=== PATIENT | female | born 1975 | race Caucasian/White ===

== ENCOUNTER 2021-07-22 06:05 | Outpatient (REF) | payer MEDICARE, MEDICAID, SELFPAY ==
[2021-07-22 09:41] LABS: Hematocrit 40.9 % (37-47); Hemoglobin 14.2 g/dl (12.0-16.0); Mean Corpuscular HGB Conc 34.7 g/dl (31.0-35.0); Mean Corpuscular Hemoglobin 33.9 pg (27.0-33.0); Mean Corpuscular Volume 97.6 fL (80-98); Mean Platelet Volume 11.6 fL (9.4-12.3); Platelet Count 253 X10*3/uL (160-400); Red Blood Count 4.19 X10*6/uL (4.20-5.50); Red Cell Distribution Width 12.2 % (11.0-16.0); White Blood Count 6.4 X10*3/uL (4.8-10.8)
[2021-07-22 10:09] LABS: Alanine Aminotransferase 12 U/L (0-31); Alkaline Phosphatase 57 U/L (39-117); Anion Gap 12 (12-20); Aspartate Amino Transferase 19 U/L (5-31); Bilirubin Total 0.3 mg/dL (0.0-1.0); Blood Urea Nitrogen 11 mg/dL (9-16); Calcium 9.2 mg/dL (8.4-10.2); Carbon Dioxide 26 mmol/L (22-29); Chloride 105 mmol/L (96-108); Cholesterol 274 mg/dL; Estimated Glomerular Filt Rate > 60; Glucose Fasting 92 mg/dL (60-99); HDL Cholesterol 69 mg/dL; LDL Cholesterol Calculated 190 mg/dl; Potassium 4.1 mmol/L (3.3-5.1); Sodium 139 mmol/L (135-145); Total Protein 7.3 g/dL (6.5-8.0); Triglycerides 79 mg/dL
[2021-07-22 10:32] LABS: TSH reflex Free T4 9.37 uIU/mL (0.32-4.0)
[2021-07-22 11:42] LABS: Free T4 (Free Thyroxine) 0.77 ng/dL (0.71-1.85)
== END 2021-07-22 06:06 | disposition home or self-care (01) ==
LOC: HO.LHD 06:05
PROVIDERS: Visit Provider Internal Medicine
DX: Z00.00 Encounter for general adult medical examination without abnormal findings (principal)
CPT/HCPCS: 36415; 80053; 80061; 84439; 84443; 85027

== ENCOUNTER 2021-10-27 14:15 | Outpatient (REF) | payer MEDICARE, MEDICAID, SELFPAY | END 2021-10-27 14:16 | disposition home or self-care (01) | LOC: HO.LHD 14:15 | PROVIDERS: Visit Provider Internal Medicine | DX: E03.9 Hypothyroidism, unspecified (principal); E78.5 Hyperlipidemia, unspecified | CPT/HCPCS: 36415; 84443 ==

== ENCOUNTER 2022-11-17 07:06 | Outpatient (REF) | payer MEDICARE, MEDICAID, SELFPAY ==
[2022-11-17 09:40] LABS: MANUAL DIFF FLAG NO
[2022-11-17 09:53] LABS: Basophils Absolute Auto 0.1 X10*3/uL (0.0-0.2); Basophils Percent Auto 1.4 % (0-2); Eosinophils Absolute Auto 0.1 X10*3/uL (0.0-0.4); Eosinophils Percent Auto 1.1 % (0-4); Hematocrit 42.7 % (37.0-47.0); Hemoglobin 14.4 g/dl (12.0-16.0); Imm Gran Abs Auto 0.01 X10*3/uL (0.00-0.03); Imm Gran Pct Auto 0.2 % (0.0-0.4); Lymphocytes Absolute Auto 1.7 X10*3/uL (1.2-4.9); Lymphocytes Percent Auto 25.8 % (20-40); Mean Corpuscular HGB Conc 33.7 g/dl (31.0-35.0); Mean Corpuscular Hemoglobin 32.4 pg (27.0-33.0); Mean Platelet Volume 10.9 fL (9.4-12.3); Monocytes Absolute Auto 0.8 X10*3/uL (0.1-1.2); Monocytes Percent Auto 12.6 % (2-11); Neutrophils Absolute Auto 3.8 x10*3/uL (2.0-8.3); Neutrophils Percent Auto 58.9 % (45-73); Platelet Count 303 X10*3/uL (160-400); Red Blood Count 4.45 X10*6/uL (4.20-5.50); Red Cell Distribution Width 11.9 % (11.0-16.0); White Blood Count 6.5 X10*3/uL (4.8-10.8)
[2022-11-17 10:18] LABS: Alanine Aminotransferase 14 U/L (0-31); Alkaline Phosphatase 78 U/L (39-117); Anion Gap 13 (12-20); Aspartate Amino Transferase 21 U/L (5-31); Bilirubin Total 0.5 mg/dL (0.0-1.0); Blood Urea Nitrogen 8 mg/dL (9-16); Calcium 9.2 mg/dL (8.4-10.2); Carbon Dioxide 25 mmol/L (22-29); Chloride 104 mmol/L (96-108); Cholesterol 290 mg/dL; Estimated Glomerular Filt Rate > 60; Glucose Fasting 95 mg/dL (60-99); HDL Cholesterol 74 mg/dL; LDL Cholesterol Calculated 199 mg/dl; Potassium 5.4 mmol/L (3.3-5.1); Sodium 137 mmol/L (135-145); Total Protein 7.2 g/dL (6.5-8.0); Triglycerides 88 mg/dL
[2022-11-17 10:33] LABS: TSH reflex Free T4 1.56 uIU/mL (0.32-4.0)
== END 2022-11-17 07:07 | disposition home or self-care (01) ==
LOC: HO.LHD 07:06
PROVIDERS: Visit Provider Internal Medicine
DX: F43.10 Post-traumatic stress disorder, unspecified (principal); E03.9 Hypothyroidism, unspecified; E78.5 Hyperlipidemia, unspecified
CPT/HCPCS: 36415; 80053; 80061; 84443; 85025

== ENCOUNTER 2023-10-30 12:51 | Outpatient (AMB) | payer MEDICARE, MEDICAID, SELFPAY ==
--- NOTE | 2023-10-30 12:28 | MHC.PC.OV ---
Intake Visit Reasons: medication Follow Up [phone] Allergies No Known Allergies Allergy (Verified 10/30/23 12:29) Medication List - Last Reconciled 10/30/23 by Yazmin Hernandez MD levothyroxine 100 mcg PO DAILY norgestimate-ethinyl estradiol 0.18/0.215/0.25 mg-35 mcg (28) (Tri-Estarylla) 1 tab PO DAILY Tobacco use date assessed: 10/30/23 Dental Screening Dental Screen Date: 10/30/23 Did you have a dental visit in the last 12 months?: Yes Did you have a dental problem in the last 6 months where you did not have access to dental care?: No Was dental information given to patient?: Patient has dentist HPI medication Follow Up [phone] HPI Details Pt is for Telehealth. Pt presents for f/u hypothyroid. Patient has been taking levothyroxine regularly. She denies complaints. She is overdue for a Pap smear and will schedule an appointment in the beginning of December [facility] Medical History Anxiety PTSD (post-traumatic stress disorder) Hypothyroid Hyperlipidemia Annual physical exam Family History (Updated 10/30/23 @ 13:00 by Yazmin Hernandez MD) Mother Pneumonia, Onset Age: 60 Father DM (diabetes mellitus) Hyperlipidemia Social History Housing: House Patient Tobacco Use Status: Never used Tobacco e-Cigarette/Vaping Use: Never Used Current occupational status: disabled Cognitive needs: No Hearing needs: No Vision needs: No Questionnaire PHQ-9 Over the last 2 weeks, how often have you been bothered by any of the following problems? 1. Little interest or pleasure in doing things: not at all 2. Feeling down, depressed, or hopeless: several days 3. Trouble falling or staying asleep, or sleeping too much: more than half the days 4. Feeling tired or having little energy: several days 5. Poor appetite or overeating: several days 6. Feeling bad about yourself - or that you are a failure or have let yourself or your family down: not at all 7. Trouble concentrating on things, such as reading the newspaper or watching television: not at all 8. Moving or speaking so slowly that other people could have noticed. Or the opposite - being so fidgety or restless that you have been moving around a lot more than usual: not at all 9. Thoughts that you would be better off or of hurting yourself in some way: not at all Total score: 5 Depression Screening Interpretation: Negative Depression Screening Done: Yes Source: Developed by Drs. Blayne Snyder, Jeri Johnston, Beto Ingram and colleagues, with an educational juan from [employer]. Thrive Questionnaire Date Thrive assessed: 10/30/23 I am a: Patient What is your living situation today?: I have a steady place to live Within the past 12 months, did the food you bought not last and you didn't have the money to get more?: Never true Within the past 12 months, did you worry whether your food would run out before you got money to buy more?: Never true Do you have trouble paying for medicines?: No Do you have trouble getting transportation to medical appointments?: No Do you have trouble paying your heating and electricity bill?: No Do you have trouble taking care of your child, family member or friend?: No Do you have trouble with day-to-day activities such as bathing, preparing meals, shopping, managing finances, etc.?: No Are you currently unemployed and looking for a job?: No Are you interested in more education?: No Please select the resources that you would like help with: None THRIVE Score: 0 AUDIT C Alcohol Use Questionnaire (AUDIT-C) 1. How often do you have a drink containing alcohol?: Monthly or less 2. How many drinks containing alcohol do you have on a typical day when you are drinking?: 1 or 2 3. How often do you have six or more drinks on one occasion?: Never Total Score: 1 SILVIA-7 AMB Questionnaire SILVIA-7 Date SILVIA - 7 assessed: 10/30/23 Feeling nervous, anxious, or on edge: 2 = More than half the days Not being able to stop or control worryin = Not at all Worrying too much about different things: 1 = Several days Trouble relaxin = Several days Being so restless that it is hard to sit still: 1 = Several days Becoming easily annoyed or irritable: 0 = Not at all Feeling afraid as if something awful might happen: 0 = Not at all Total SILVIA-7 score (0-4 normal; 5-9 mild; 10-14 moderate; 15-21 severe): 5 Source: Developed by Drs. Blayne Snyder, Jeri Johnston, Beto Ingram and colleagues, with an educational juan from [employer]. Review of Systems Const All systems reviewed & are unremarkable except as noted in HPI and below Reports no additional complaints Eyes Reports no additional complaints ENT Reports no additional complaints Resp Reports no additional complaints GI Reports no additional complaints Reports no additional complaints Physical exam (Primary Care) Tobacco/Smoking Status: Tobacco use Status Tobacco use date assessed 10/30/23 10/30/23 12:37 Patient Tobacco Use Status Never used Tobacco 10/30/23 12:37 e-Cigarette/Vaping Use Never Used 10/30/23 12:28 PHQ-9: PHQ-9 Score PHQ-9: Total score 5 10/30/23 12:37 Depression Screening Interpretation: Negative Thrive Assessment: Date of Thrive Assessment Date Thrive assessed 10/30/23 10/30/23 12:37 Telehealth Telehealth Location of provider rendering services: practice address Location of patient: address on file Patient Identification confirmed using: Name, : Yes Telehealth method: voice only Patient verbally consented to treatment: Yes Patient verbally consented to billing insurance company: Yes Patient informed of any privacy concerns related to visit: Yes Minutes spent on Phone/Video with Pt.: 15 Assessment and Plan Assessment & Plan (1) Hypothyroid: Code(s): E03.9 - Hypothyroidism, unspecified Plan: Continue levothyroxine patient will return in December for a Pap smear and will have blood work at the same time (2) Annual physical exam: Code(s): Z00.00 - Encounter for general adult medical examination without abnormal findings Plan: Well-balanced diet regular physical activity discussed with the patient. She will schedule an appointment for Pap smear in December. Patient declined mammogram or colonoscopy. She has not interested in treating hyperlipidemia Orders: Orders TSH reflex Free T4 Today E03.9 - Hypothyroidism, unspecified, Z00.00 - Encounter for general adult medical examination without abnormal findings Medications: Refilled levothyroxine 100 mcg PO DAILY 90 tabs 1RF Coding Level of Care Code Tele Est Pt Level 3 (80018) Diagnoses Hypothyroid E03.9 Annual physical exam Z00.00
== END 2023-10-30 13:08 | disposition home or self-care (01) ==
PROVIDERS: PCP Internal Medicine; Visit Provider Internal Medicine
DX: E03.9 Hypothyroidism, unspecified (principal)
CPT/HCPCS: 99442

== ENCOUNTER 2024-01-10 12:16 | Outpatient (AMB) | payer MEDICARE, MEDICAID, SELFPAY ==
[2024-01-10 12:33] VITALS: BP 122/78; PULSE 110; O2SAT 98; BMI 23.2
--- NOTE | 2024-01-10 12:33 | MHC.PC.OV ---
Vital Signs 01/10/24 12:33 Height 5 ft 4 in Weight 135 lb BMI 23.2 BP 122/78 Blood Pressure Location Lt brachial Position Sitting Pulse 110 H Pulse Source Pulse Oximeter Pulse Oximetry (%) 98 Oxygen Delivery Method Room Air Intake Visit Reasons: 4 Month F/U thyroids Intake Note: Pt is here today for 4 months follow up visit. Allergies No Known Allergies Allergy (Verified 01/10/24 12:58) Medication List - Last Reconciled 01/10/24 by Yazmin Hernandez MD levothyroxine 100 mcg PO DAILY norgestimate-ethinyl estradiol 0.18/0.215/0.25 mg-35 mcg (28) (Tri-Estarylla) 1 tab PO DAILY Tobacco use date assessed: 01/10/24 Dental Screening Dental Screen Date: 01/10/24 Did you have a dental visit in the last 12 months?: Yes Did you have a dental problem in the last 6 months where you did not have access to dental care?: No Was dental information given to patient?: Patient has dentist HPI 4 Month F/U thyroids HPI Details Pt presents for PE. hypothyroid is stable on Levothyroxine. Pt f/u with counselor for PTSD. [facility] Medical History (Updated 01/10/24 @ 13:34 by Yazmin Hernandez MD) Anxiety PTSD (post-traumatic stress disorder) Hypothyroid Hyperlipidemia Annual physical exam Surgical History Hx of removal of cyst Family History Mother Pneumonia, Onset Age: 60 Father DM (diabetes mellitus) Hyperlipidemia Social History Housing: House Patient Tobacco Use Status: Never used Tobacco e-Cigarette/Vaping Use: Never Used Current occupational status: disabled Cognitive needs: No Hearing needs: No Vision needs: No Questionnaire Thrive Questionnaire Date Thrive assessed: 10/30/23 AUDIT C Alcohol Use Questionnaire (AUDIT-C) 1. How often do you have a drink containing alcohol?: Never 3. How often do you have six or more drinks on one occasion?: Never Total Score: 0 SILVIA-7 AMB Questionnaire SILVIA-7 Date SILVIA - 7 assessed: 10/30/23 Source: Developed by Drs. Blayne Snyder, Jeri Johnston, Beto Ingram and colleagues, with an educational juan from [employer]. Review of Systems Const All systems reviewed & are unremarkable except as noted in HPI and below Reports no additional complaints Eyes Reports no additional complaints ENT Reports no additional complaints Card Reports no additional complaints Resp Reports no additional complaints GI Reports no additional complaints Reports no additional complaints Physical exam (Primary Care) Vital Signs: Last Vital Signs Pulse 110 H 01/10/24 12:33 BP 122/78 01/10/24 12:33 Pulse Ox 98 01/10/24 12:33 Oxygen Delivery Method Room Air 01/10/24 12:33 BMI result Body Mass Index 23.2 Tobacco/Smoking Status: Tobacco use Status Tobacco use date assessed 01/10/24 01/10/24 12:34 Patient Tobacco Use Status Never used Tobacco 01/10/24 12:34 e-Cigarette/Vaping Use Never Used 01/10/24 12:34 Thrive Assessment: Date of Thrive Assessment Date Thrive assessed 10/30/23 01/10/24 12:34 Const General: no acute distress HENMT Ears: hearing grossly normal bilaterally General nose exam: Normal external nose present Face and sinus: Yes normal facial exam Mouth: Normal oral and palatal mucosa present Throat: Yes posterior oropharynx normal Eyes General: appearance normal, both eyes and all related structures Neck Neck: Yes no lymphadenopathy and Yes supple Resp Effort & Inspection: normal respiratory effort Auscultation: clear to auscultation bilaterally Cardio Rhythm: regular rhythm Heart sounds: S1 normal heart sound present and S2 normal heart sound present GI Inspection: Yes normal to inspection Palpation (GI): Soft to palpation Percussion: Yes normal to percussion Auscultation: normal bowel sounds Assessment and Plan Assessment & Plan (1) Normal pelvic exam: Comment: >5yrs, patient declined Pap smear and pelvic exam 01/22 Code(s): Z01.419 - Encounter for gynecological examination (general) (routine) without abnormal findings (2) Colonoscopy refused: Comment: 01/22 Code(s): Z53.20 - Procedure and treatment not carried out because of patient's decision for unspecified reasons (3) Mammogram declined: Comment: 01/22 Code(s): Z53.20 - Procedure and treatment not carried out because of patient's decision for unspecified reasons (4) Hypothyroid: Code(s): E03.9 - Hypothyroidism, unspecified Plan: Continue Levothyroxine (5) Annual physical exam: Code(s): Z00.00 - Encounter for general adult medical examination without abnormal findings Plan: Well-balanced diet regular physical activity discussed with the patient should have a blood work today for TSH. Patient declined blood work for comprehensive panel old lipid profile Orders: Orders TSH reflex Free T4 Today E03.9 - Hypothyroidism, unspecified Medications: Refilled levothyroxine 100 mcg PO DAILY 90 tabs 3RF norgestimate-ethinyl estradiol 0.18/0.215/0.25 mg-35 mcg (28) (Tri-Estarylla) 1 tab PO DAILY 84 tabs 3RF Coding Level of Care Code Est Pt Prev Care 40-64y(70854) Diagnoses Normal pelvic exam Z01.419 Colonoscopy refused Z53.20 Mammogram declined Z53.20 Hypothyroid E03.9 Annual physical exam Z00.00
== END 2024-01-10 13:35 | disposition home or self-care (01) ==
PROVIDERS: PCP Internal Medicine; Visit Provider Internal Medicine
DX: Z00.00 Encounter for general adult medical examination without abnormal findings (principal); Z53.20 Procedure and treatment not carried out because of patient's decision for unspecified reasons; E03.9 Hypothyroidism, unspecified
CPT/HCPCS: 99396

== ENCOUNTER 2024-01-10 13:26 | Outpatient (REF) | payer MEDICARE, MEDICAID, SELFPAY ==
[2024-01-10 16:50] LABS: TSH reflex Free T4 1.62 uIU/mL (0.32-4.0)
== END 2024-01-10 13:27 | disposition home or self-care (01) ==
LOC: HO.HMGCLDS 13:26
PROVIDERS: PCP Internal Medicine; Visit Provider Internal Medicine
DX: E03.9 Hypothyroidism, unspecified (principal)
CPT/HCPCS: 36415; 84443

== ENCOUNTER 2024-12-22 15:19 | Outpatient (AMB) | payer MEDICARE, MEDICAID, SELFPAY ==
--- NOTE | 2024-12-22 15:37 | AM.OFFWIN_ITS ---
Intake Vital Signs 3 12/22/24 15:39 Weight 136 lb BP 150/90 H Blood Pressure Location Rt brachial Position Sitting Pulse 78 Pulse Source Pulse Oximeter Pulse Oximetry (%) 98 Oxygen Delivery Method Room Air Intake Visit Reasons: EP-lt leg rash Intake Note: Patient here for rash on left leg that has been present for about 3 weeks now. Patient Tobacco Use Status: Never used Tobacco Allergies No Known Allergies Allergy (Verified 12/22/24 15:38) Do you need a note to return to daycare/school/sports/work: No HPI HPI Comments 2 History of Present Illness0 Details 49 y/o female patient who presents to [facility] walk in clinic with c/o Rash that is very itchy and red x 3 weeks. Pt also reports Generalized pruritus and hives all over her body. She does have h/o Eczema. She noticed the redness getting worse after she shaved her legs. [facility] Medical History (Updated 12/22/24 @ 16:18 by Sandhya Blanc NP) Rash and nonspecific skin eruption Anxiety PTSD (post-traumatic stress disorder) Hypothyroid Hyperlipidemia Annual physical exam Surgical History Hx of removal of cyst Family History Mother Pneumonia, Onset Age: 60 Father DM (diabetes mellitus) Hyperlipidemia Social History Housing: House Patient Tobacco Use Status: Never used Tobacco e-Cigarette/Vaping Use: Never Used Current occupational status: disabled Cognitive needs: No Hearing needs: No Vision needs: No Review of Systems Const All systems reviewed & are unremarkable except as noted in HPI and below Physical Exam Vital Signs: Last Vital Signs Pulse 78 12/22/24 15:39 BP 150/90 H 12/22/24 15:39 Pulse Ox 98 12/22/24 15:39 Oxygen Delivery Method Room Air 12/22/24 15:39 Const General: cooperative, no acute distress and poor hygiene; No comfortable Orientation/consciousness: patient oriented x3 Skin Other: Generalized Hives neck, upper chest/back, Upper arms and lower extremities. Neuro General: patient oriented x3, gait normal and moves all extremities Extrem Other: Left lower extremity: lower leg (Per Images above. ) Details: erythema Location: of the distal lower leg, tenderness Location: of the midshaft tibia and of the midshaft fibula and localized swelling Location: of the distal lower leg; no crepitus Psych Speech and movement: Normal speech and movement present Affect: Anxious affect present Assessment & Plan Assessment & Plan (1) Rash and nonspecific skin eruption: Code(s): R21 - Rash and other nonspecific skin eruption Plan: DDx: Cellulitis vs MRSA vs Eczema Ordered Keflex to cover infection Keep the area dry and clean She does have an Appointment with PCP 01/12 Ordered Benadrly for Hives and itching. Medications: New 2 cephalexin 500 mg PO BID 10 days 20 caps 0RF R21 - Rash and other nonspecific skin eruption diphenhydramine HCl (Benadryl Allergy) 50 mg PO BEDTIME PRN 30 tabs 0RF itching R21 - Rash and other nonspecific skin eruption Coding Level of Care Code Est Pt Level 4 (07601) Diagnoses Rash and nonspecific skin eruption R21 Time Spent (min) 20
[2024-12-22 15:39] VITALS: BP 150/90; PULSE 78; O2SAT 98
== END 2024-12-22 16:19 | disposition home or self-care (01) ==
PROVIDERS: PCP Internal Medicine; Visit Provider Nurse Practitioner Family
DX: R21 Rash and other nonspecific skin eruption (principal)

== ENCOUNTER → 2024-12-22 15:19 | Outpatient (BNVA) | payer MEDICARE, MEDICAID, SELFPAY | PROVIDERS: PCP Internal Medicine; Visit Provider Nurse Practitioner Family | DX: R21 Rash and other nonspecific skin eruption (principal) | CPT/HCPCS: 99212 ==

== ENCOUNTER 2024-12-25 10:49 | Outpatient (AMB) | payer MEDICARE, MEDICAID, SELFPAY ==
[2024-12-25 10:53] VITALS: BP 122/80; PULSE 101; RESP 20; TEMP 36.7; O2SAT 98; BMI 23.5
--- NOTE | 2024-12-25 10:53 | A.OFFPC_ITS ---
Vital Signs 12/25/24 10:53 Height 5 ft 4 in Weight 137 lb BMI 23.5 BP 122/80 Blood Pressure Location Rt brachial Position Sitting Respiration 20 Pulse 101 H Pulse Source Pulse Oximeter Temp 98.0 F Temp Source Oral Pulse Oximetry (%) 98 Oxygen Delivery Method Room Air Intake Visit Reasons: Follow up walk-in Intake Note: Pt is here today for a follow up visit on rash on her legs and face. Pt states that now her face is swelling. Allergies No Known Allergies Allergy (Verified 12/25/24 11:10) Medication List - Last Reconciled 12/25/24 by Yazmin Hernandez MD cephalexin 500 mg PO BID 10 days diphenhydramine HCl (Benadryl Allergy) 50 mg PO BEDTIME PRN levothyroxine 100 mcg PO DAILY norgestimate-ethinyl estradiol 0.18/0.215/0.25 mg-35 mcg (28) (Tri-Estarylla) 1 tab PO DAILY prednisone 20 mg PO DAILY Tobacco use date assessed: 12/25/24 Dental Screening Dental Screen Date: 12/25/24 Did you have a dental visit in the last 12 months?: Yes Did you have a dental problem in the last 6 months where you did not have access to dental care?: No Was dental information given to patient?: Patient has dentist HPI Follow up walk-in HPI Details Patient presents for the follow-up of walk-in visit 4 days ago. Santos lerner developed pruritic rash on the left lower extremity after shaving last week followed by pruritic rash on patient's face neck and upper chest.. She has been applying aloe vera plant on her face which made the rash worse. Patient has been taking Keflex for the last 4 days for left lower extremity cellulitis. She reports swelling and erythema improved on the left lower extremity. She denies fever chills. Patient denies exposure to new chemicals. [facility] Medical History (Updated 12/25/24 @ 11:44 by Yazmin Hernandez MD) Rash and nonspecific skin eruption Anxiety PTSD (post-traumatic stress disorder) Hypothyroid Hyperlipidemia Annual physical exam Surgical History Hx of removal of cyst Family History Mother Pneumonia, Onset Age: 60 Father DM (diabetes mellitus) Hyperlipidemia Social History Housing: House Patient Tobacco Use Status: Never used Tobacco e-Cigarette/Vaping Use: Never Used service: No Current occupational status: disabled Cognitive needs: No Hearing needs: No Vision needs: No Questionnaire Thrive Questionnaire Date Thrive assessed: 10/30/23 AUDIT C Alcohol Use Questionnaire (AUDIT-C) 1. How often do you have a drink containing alcohol?: Never 3. How often do you have six or more drinks on one occasion?: Never Total Score: 0 SILVIA-7 AMB Questionnaire SILVIA-7 Date SILVIA - 7 assessed: 10/30/23 Source: Developed by Drs. Blayne Snyder, Jeri Johnston, Beto Ingram and colleagues, with an educational juan from [employer]. Review of Systems Const All systems reviewed & are unremarkable except as noted in HPI and below ENT Reports no additional complaints Card Reports no additional complaints Resp Reports no additional complaints GI Reports no additional complaints Reports no additional complaints Musc Reports no additional complaints Physical exam (Primary Care) Vital Signs: Last Vital Signs Temp 98.0 F 12/25/24 10:53 Pulse 101 H 12/25/24 10:53 Resp 20 12/25/24 10:53 BP 122/80 12/25/24 10:53 Pulse Ox 98 12/25/24 10:53 Oxygen Delivery Method Room Air 12/25/24 10:53 BMI result Body Mass Index 23.5 Tobacco/Smoking Status: Tobacco use Status Tobacco use date assessed 12/25/24 12/25/24 11:12 Patient Tobacco Use Status Never used Tobacco 12/25/24 11:12 e-Cigarette/Vaping Use Never Used 12/25/24 10:53 Thrive Assessment: Date of Thrive Assessment Date Thrive assessed 10/30/23 12/25/24 10:53 Const General: no acute distress HENMT Head: Yes normal to inspection Ears: TM's normal bilaterally Mouth: Normal oral and palatal mucosa present Eyes Other: Erythema and swelling of her upper and lower lids General: appearance normal, both eyes and all related structures Sclerae: sclerae normal Corneas: corneas normal Pupils: Equal, round and reactive pupils present Neck Neck: Yes supple Resp Effort & Inspection: normal respiratory effort Auscultation: clear to auscultation bilaterally Cardio Rhythm: regular rhythm Heart sounds: S1 normal heart sound present and S2 normal heart sound present Skin Other: There is erythematous maculopapular rash on face upper chest and left lower extremity. There is a crust present over anterior osborne, Neuro Cranial nerves: Yes Equal, round and reactive pupils present Coding Level of Care Code Est Pt Level 3 (69327) Diagnoses Acute dermatitis L30.9 Assessment & Plan Assessment & Plan (1) Acute dermatitis: Code(s): L30.9 - Dermatitis, unspecified Category: Medical Plan: Prednisone 40 mg for 4 days followed by 20 mg for 4 days is prescribed. Patient was advised to avoid any contact with chemicals. She will continue cephalexin for left lower extremity cellulitis Medications: New prednisone 2 tabl x 4, then 1 tabl x 4 20 mg PO DAILY 12 tabs 0RF
== END 2024-12-25 11:45 | disposition home or self-care (01) ==
LOC: HO.HMCC 10:50
PROVIDERS: PCP Internal Medicine; Visit Provider Internal Medicine
DX: L30.9 Dermatitis, unspecified (principal)

== ENCOUNTER → 2024-12-25 10:49 | Outpatient (BNVA) | payer MEDICARE, MEDICAID, SELFPAY | PROVIDERS: PCP Internal Medicine; Visit Provider Internal Medicine | DX: L30.9 Dermatitis, unspecified (principal) | CPT/HCPCS: 99212 ==

== ENCOUNTER 2025-01-12 10:00 | Outpatient (REF) | payer MEDICARE, MEDICAID, SELFPAY ==
[2025-01-12 14:12] LABS: Alanine Aminotransferase 34 U/L (0-31); Alkaline Phosphatase 54 U/L (39-117); Anion Gap 11 (12-20); Aspartate Amino Transferase 28 U/L (5-31); Bilirubin Total 0.6 mg/dL (0.0-1.0); Blood Urea Nitrogen 10 mg/dL (9-16); Calcium 9.2 mg/dL (8.4-10.2); Carbon Dioxide 29 mmol/L (22-29); Chloride 103 mmol/L (96-108); Estimated Glomerular Filt Rate > 60; Glucose Random 68 mg/dL (60-115); Potassium 3.8 mmol/L (3.3-5.1); Sodium 139 mmol/L (135-145); Total Protein 7.1 g/dL (6.5-8.0)
[2025-01-12 14:25] LABS: TSH reflex Free T4 6.96 uIU/mL (0.32-4.0)
[2025-01-13 10:43] LABS: Follicle Stimulating Hormone 12.1 mIU/mL
== END 2025-01-12 10:01 | disposition home or self-care (01) ==
LOC: HO.HMGCLDS 10:00
PROVIDERS: PCP Internal Medicine; Visit Provider Internal Medicine
DX: Z13.89 Encounter for screening for other disorder (principal)
CPT/HCPCS: 36415; 80053; 83001; 84439; 84443

== ENCOUNTER 2025-01-12 10:00 | Outpatient (AMB) | payer MEDICARE, MEDICAID, SELFPAY ==
--- NOTE | 2025-01-12 10:06 | A.OFFPC_ITS ---
Vital Signs 01/12/25 10:07 Height 5 ft 4 in Weight 139 lb BMI 23.9 BP 126/75 Blood Pressure Location Rt brachial Position Sitting Respiration 18 Pulse 94 Pulse Source Pulse Oximeter Temp 97.8 F Temp Source Oral Pulse Oximetry (%) 98 Oxygen Delivery Method Room Air Intake Visit Reasons: PE Intake Note: Pt is here today for PE. Allergies No Known Allergies Allergy (Verified 01/12/25 10:25) Medication List - Last Reconciled 01/12/25 by Yazmin Hernandez MD diphenhydramine HCl (Benadryl Allergy) 50 mg PO BEDTIME PRN levothyroxine 100 mcg PO DAILY norgestimate-ethinyl estradiol 0.18/0.215/0.25 mg-0.035mg (28) (Tri-Estarylla) 1 tab PO DAILY Tobacco use date assessed: 01/12/25 Dental Screening Dental Screen Date: 12/25/24 HPI PE HPI Details Pt presents for PE PFSH Medical History (Updated 01/12/25 @ 11:02 by Yazmin Hernandez MD) Rash and nonspecific skin eruption Anxiety PTSD (post-traumatic stress disorder) Hypothyroid Hyperlipidemia Annual physical exam Surgical History Hx of removal of cyst Family History Mother Pneumonia, Onset Age: 60 Father DM (diabetes mellitus) Hyperlipidemia Social History Housing: House Patient Tobacco Use Status: Never used Tobacco e-Cigarette/Vaping Use: Never Used service: No Current occupational status: disabled Cognitive needs: No Hearing needs: No Vision needs: No Questionnaire PHQ-9 Over the last 2 weeks, how often have you been bothered by any of the following problems? 1. Little interest or pleasure in doing things: several days 2. Feeling down, depressed, or hopeless: several days 3. Trouble falling or staying asleep, or sleeping too much: several days 4. Feeling tired or having little energy: several days 5. Poor appetite or overeating: several days 6. Feeling bad about yourself - or that you are a failure or have let yourself or your family down: not at all 7. Trouble concentrating on things, such as reading the newspaper or watching television: not at all 8. Moving or speaking so slowly that other people could have noticed. Or the opposite - being so fidgety or restless that you have been moving around a lot more than usual: not at all 9. Thoughts that you would be better off or of hurting yourself in some way: not at all Total score: 5 Depression Screening Interpretation: Negative Depression Screening Done: Yes 44661 - PHQ-9 Billing: Yes Source: Developed by Drs. Blayne Snyder, Jeri Johnston, Beto Ingram and colleagues, with an educational juan from [employer]. Thrive Questionnaire Date Thrive assessed: 01/12/25 I am a: Patient What is your living situation today?: I have a steady place to live Within the past 12 months, did the food you bought not last and you didn't have the money to get more?: Never true Within the past 12 months, did you worry whether your food would run out before you got money to buy more?: Never true Do you have trouble paying for medicines?: No Do you have trouble getting transportation to medical appointments?: No Do you have trouble paying your heating and electricity bill?: No Do you have trouble taking care of your child, family member or friend?: No Do you have trouble with day-to-day activities such as bathing, preparing meals, shopping, managing finances, etc.?: No Are you currently unemployed and looking for a job?: No Are you interested in more education?: No THRIVE Score: 0 AUDIT C Alcohol Use Questionnaire (AUDIT-C) 1. How often do you have a drink containing alcohol?: Never 3. How often do you have six or more drinks on one occasion?: Never Total Score: 0 SILVIA-7 AMB Questionnaire SILVIA-7 Date SILVIA - 7 assessed: 01/12/25 Feeling nervous, anxious, or on edge: 0 = Not at all Not being able to stop or control worryin = Not at all Worrying too much about different things: 0 = Not at all Trouble relaxin = Not at all Being so restless that it is hard to sit still: 0 = Not at all Becoming easily annoyed or irritable: 0 = Not at all Feeling afraid as if something awful might happen: 0 = Not at all Total SILVIA-7 score (0-4 normal; 5-9 mild; 10-14 moderate; 15-21 severe): 0 Source: Developed by Drs. Blayne Snyder, Jeri Johnston, Beto Ingram and colleagues, with an educational juan from [employer]. SILVIA-7 Assessment Billing SILVIA-7 Assessment Tool: SILVIA-7 Assessment 29823 Review of Systems Const All systems reviewed & are unremarkable except as noted in HPI and below Reports no additional complaints Eyes Reports no additional complaints ENT Reports no additional complaints Card Reports no additional complaints Resp Reports no additional complaints GI Reports no additional complaints Reports no additional complaints Physical exam (Primary Care) Vital Signs: Last Vital Signs Temp 97.8 F 01/12/25 10:07 Pulse 94 01/12/25 10:07 Resp 18 01/12/25 10:07 BP 126/75 01/12/25 10:07 Pulse Ox 98 01/12/25 10:07 Oxygen Delivery Method Room Air 01/12/25 10:07 BMI result Body Mass Index 23.9 Tobacco/Smoking Status: Tobacco use Status Tobacco use date assessed 01/12/25 01/12/25 10:09 Patient Tobacco Use Status Never used Tobacco 01/12/25 10:09 e-Cigarette/Vaping Use Never Used 01/12/25 10:09 PHQ-9: PHQ-9 Score PHQ-9: Total score 5 01/12/25 10:56 Depression Screening Interpretation: Negative Thrive Assessment: Date of Thrive Assessment Date Thrive assessed 01/12/25 01/12/25 10:29 Const General: no acute distress HENMT Head: Yes normal to inspection Ears: hearing grossly normal bilaterally General nose exam: Normal external nose present Face and sinus: Yes normal facial exam Mouth: Normal oral and palatal mucosa present Throat: Yes posterior oropharynx normal Eyes General: appearance normal, both eyes and all related structures Neck Neck: Yes no lymphadenopathy and Yes supple Chest Breast/axilla inspection: normal inspection of the breasts Breast/axilla palpation: normal palpation of the breasts Resp Effort & Inspection: normal respiratory effort Auscultation: clear to auscultation bilaterally Cardio Rhythm: regular rhythm Heart sounds: S1 normal heart sound present and S2 normal heart sound present GI Inspection: Yes normal to inspection Palpation (GI): Soft to palpation Percussion: Yes normal to percussion Auscultation: normal bowel sounds Speculum Exam - Vagina: normal appearance of the vagina Speculum Exam - Cervix: normal appearance of the cervix Bimanual exam- vagina & uterus: normal bimanual exam Results AMB Urinalysis, Automated UA Leukoctes 0 Miriam/uL Last Edit by Nathalia Phipps [facility] on 01/12/25 10:57 UA Nitrite Negative Last Edit by Nathalia Phipps [facility] on 01/12/25 10:57 UA Urobilinogen 0.2 mg/dL Last Edit by Nathalia Phipps [facility] on 01/12/25 10: 57 UA Protein 0 mg/dL Last Edit by Nathalia Phipps [facility] on 01/12/25 10:57 UA pH 6.0 Last Edit by Nathalia Phipps [facility] on 01/12/25 10:57 UA Blood 0 Scout/uL Last Edit by Nathalia Phipps [facility] on 01/12/25 10:57 UA Specific Sunflower 1.005 Last Edit by Nathalia Phipps [facility] on 01/12/25 10 :57 UA Ketone Negative Last Edit by Nathalia Phipps [facility] on 01/12/25 10:57 UA Bilirubin 0 mg/dL Last Edit by Nathalia Phipps [facility] on 01/12/25 10:57 UA Glucose 0 mg/dL Last Edit by Nathalia Phipps [facility] on 01/12/25 10:57 Results Reviewed Results Reviewed: Laboratory Last Values Urine pH (Auto) 6.0 01/12/25 10:53 Specific Sunflower (Auto) 1.005 01/12/25 10:53 Urine Protein (Auto) 0 mg/dL 01/12/25 10:53 Glucose (UA)(Auto) 0 mg/dL 01/12/25 10:53 Urine Ketones (Auto) Negative 01/12/25 10:53 Urine Blood (Auto) 0 Scout/uL 01/12/25 10:53 Urine Nitrite (Auto) Negative 01/12/25 10:53 Urine Bilirubin (Auto) 0 mg/dL 01/12/25 10:53 Urine Urobilinogen (Auto) 0.2 mg/dL 01/12/25 10:53 Leukocyte Esterase (Auto) 0 Miriam/uL 01/12/25 10:53 Coding Level of Care Code Est Pt Prev Care 40-64y(69222) Diagnoses Colonoscopy refused Z53.20 Annual physical exam Z00.00 Hypothyroid E03.9 Additional Codes SILVIA-7 Assessment Billing - SILVIA-7 Assessment Tool: SILVIA-7 Assessment 32573 ([id number]) PHQ-9 - 98562 - PHQ-9 Billing: Yes ([id number]) Assessment & Plan Assessment & Plan (1) Colonoscopy refused: Comment: 01/22, 12/2024 refused Cologuard Code(s): Z53.20 - Procedure and treatment not carried out because of patient's decision for unspecified reasons Category: Medical Plan: refused (2) Annual physical exam: Code(s): Z00.00 - Encounter for general adult medical examination without abnormal findings Category: Medical Plan: well balanced diet, regular exercise, discussed with the patient. She declined colonoscopy and mammogram. Pap smear was done today (3) Hypothyroid: Code(s): E03.9 - Hypothyroidism, unspecified Category: Medical Plan: Continue levothyroxine check TSH Orders: Orders AMB Urinalysis Automated Today Z13.9 - Encounter for screening, unspecified TSH reflex Free T4 Today E03.9 - Hypothyroidism, unspecified, Z00.00 - Encounter for general adult medical examination without abnormal findings, Z53.20 - Procedure and treatment not carried out because of patient's decision for unspecified reasons Pap Smear Today Z00.00 - Encounter for general adult medical examination without abnormal findings Follicle Stimulating Hormone Today E03.9 - Hypothyroidism, unspecified, Z00.00 - Encounter for general adult medical examination without abnormal findings, Z53.20 - Procedure and treatment not carried out because of patient's decision for unspecified reasons Comprehensive Met. Panel Today E03.9 - Hypothyroidism, unspecified, Z00.00 - Encounter for general adult medical examination without abnormal findings, Z53.20 - Procedure and treatment not carried out because of patient's decision for unspecified reasons Medications: Refilled levothyroxine 100 mcg PO DAILY 90 tabs 3RF norgestimate-ethinyl estradiol 0.18/0.215/0.25 mg-0.035mg (28) (Tri-Estarylla) 1 tab PO DAILY 84 tabs 3RF
[2025-01-12 10:07] VITALS: BP 126/75; PULSE 94; RESP 18; TEMP 36.6; O2SAT 98; BMI 23.9
== END 2025-01-12 11:41 | disposition home or self-care (01) ==
LOC: HO.HMCC 10:01
PROVIDERS: PCP Internal Medicine; Visit Provider Internal Medicine
DX: Z00.00 Encounter for general adult medical examination without abnormal findings (principal); Z53.20 Procedure and treatment not carried out because of patient's decision for unspecified reasons; E03.9 Hypothyroidism, unspecified; Z13.9 Encounter for screening, unspecified

== ENCOUNTER 2025-01-12 10:53 | Outpatient (REF) | payer MEDICARE, MEDICAID, SELFPAY ==
[2025-01-15 14:27] LABS: HPV Genotype 16 Negative (Negative); HPV Genotype 18 Negative (Negative); HPV High Risk Negative (Negative)
== END 2025-01-12 10:54 | disposition home or self-care (01) ==
LOC: HO.LNP 10:53
PROVIDERS: Visit Provider Internal Medicine
DX: Z00.00 Encounter for general adult medical examination without abnormal findings (principal); Z12.4 Encounter for screening for malignant neoplasm of cervix; Z11.51 Encounter for screening for human papillomavirus (HPV); E03.9 Hypothyroidism, unspecified; Z79.899 Other long term (current) drug therapy
CPT/HCPCS: 36415; 80053; 81003; 83001; 84439; 84443; 87626; 88175; 96127; 99396

== ENCOUNTER 2025-05-20 13:03 | Outpatient (REF) | payer MEDICARE, MEDICAID, SELFPAY | END 2025-05-20 13:04 | disposition home or self-care (01) | LOC: HO.HMGCLDS 13:03 | PROVIDERS: PCP Internal Medicine; Visit Provider Internal Medicine | DX: E03.9 Hypothyroidism, unspecified (principal) | CPT/HCPCS: 36415; 84443 ==